=== PATIENT | female | born 1985 | race Caucasian/White ===

== ENCOUNTER 2020-10-28 12:33 | Emergency (ER) | payer SELFPAY ==
[~2020-10-28] VITALS: Ht 167.6 cm; Wt 59.1 kg
[2020-10-28 12:54] LABS: BASO # 0.1 (0.0-0.2); BASO % 0.4 % (0.0-2.0); EOS # 0.1 (0.0-0.7); EOS % 0.9 % (0-4.0); GRAN % 64.1 % (42.2-75.2); HEMATOCRIT 39.9 % (37.0-47.0); HEMOGLOBIN 13.5 g/dl (12.5-16.0); LYMPH % 28.3 % (20.0-51.0); MEAN CELL VOLUME 91 fl (80.0-100.0); MEAN CORPUSCULAR HEMOGLOBIN 31 pg (27.0-31.0); MEAN CORPUSCULAR HGB CONC 34 g/dl (33.0-37.0); MONO # 0.8 (0.1-0.6); MONO % 5.8 % (1.7-9.3); PLATELET COUNT 317 K/mm3 (130-400); RED BLOOD COUNT 4.37 M/mm3 (4.10-5.30); REDCELL DISTRIBUTION WIDTH-CV 11.9 % (11.5-14.5)
[2020-10-28 12:55] VITALS: TEMP 97.6
[2020-10-28 12:55] LABS: ALBUMIN 4.2 gm/dL (3.5-5.0); BILIRUBIN,TOTAL 0.5 mg/dL (0.0-1.0); CALCIUM 9.7 mg/dL (8.4-10.2); CREATININE, serum 0.83 (0.52-1.25); TOTAL PROTEIN 7.5 gm/dL (6.4-8.2)
[2020-10-28 14:08] LABS: INR 1.2 (0.8-3.0); PROTHROMBIN TIME 13.3 SECONDS (9.7-12.8)
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
[2020-10-28 16:16] VITALS: BP 122/85; PULSE 86
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
[2020-10-28 16:17] LABS: TRICYCLIC ANTIDEPRESS URINE NEGATIVE
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
== END 2020-10-28 16:16 | disposition short-term general hospital (02) ==
LOC: COL.ER 12:33
PROVIDERS: Emergency Medicine
DX: S42.032B Displaced fracture of lateral end of left clavicle, initial encounter for open fracture (principal); S22.32XA Fracture of one rib, left side, initial encounter for closed fracture; X93.XXXA Assault by handgun discharge, initial encounter; Y92.410 Unspecified street and highway as the place of occurrence of the external cause
CPT/HCPCS: J0295; J2270; J2405; J7120; Q9967